=== PATIENT | male | born 1980 | race Caucasian/White ===

== ENCOUNTER 2020-07-25 21:42 | Emergency (ER) | payer SELFPAY ==
[~2020-07-25] VITALS: Ht 170.2 cm; Wt 83.9 kg
--- NOTE | 2020-07-25 21:42 | NUR ---
PT ELVA CHAMBERS, PREBOOK. TAKEN TO CHAIR
[2020-07-25 21:46] VITALS: BP 142/85
--- NOTE | 2020-07-25 21:58 | NUR ---
INGE AGUILAR AT CHAIR SIDE FOR MEDICAL EVALUATION.
[2020-07-25 22:33] VITALS: BP 142/85
--- NOTE | 2020-07-25 22:34 | NUR ---
Patient discharged with v/s stable. Written and verbal after care instructions given and explained. Patient verbalized understanding. Ambulatory with in custody. All questions addressed prior to discharge. Advised to follow up with PMD.
== END 2020-07-25 22:34 ==
LOC: MED 21:42
DX: Z02.89 Encounter for other administrative examinations (principal)
CPT/HCPCS: 99283